=== PATIENT | male | born 1995 | race Caucasian/White ===

== ENCOUNTER 2021-08-12 13:45 | Emergency (ER) | payer OTHER ==
[2021-08-12 16:05] LABS: BILIRUBIN,URINE NEGATIVE (NEGATIVE); GLUCOSE, URINE (UA) NEGATIVE (NEGATIVE); KETONES,URINE (UA) NEGATIVE (NEGATIVE); LEUKOCYTE ESTERASE, URINE NEGATIVE (NEGATIVE); NITRITE,URINE NEGATIVE (NEGATIVE); OCCULT BLOOD,URINE NEGATIVE (NEGATIVE); PROTEIN,URINE NEGATIVE (NEGATIVE); UROBILINOGEN,URINE 0.2 (NORMAL) E.U./dL (NORMAL)
[2021-08-12 16:07] LABS: CLARITY,URINE CLEAR (CLEAR)
--- NOTE | 2021-08-12 16:19 | Ultrasound Report ---
PROCEDURE: Testicle w/Doppler INDICATIONS: testicular pain TECHNIQUE: Real-time scanning was performed of the scrotum and testicles, with image documentation. Color and p ulse Doppler interrogation was performed of both testicles. COMPARISON: None. FINDINGS: Right: Testicle is normal in size at 5.1 x 2.2 x 3.3 cm, and homogenous in echotexture. Epididymis is normal in overall size and morphology. Trace right-sided hydrocele. No varicoceles. Overlying sc rotal skin is normal in thickness. Left: Testicle is normal in size at 4.7 x 2.2 x 3.2 cm, and homogeneous in echotexture. Epididymis is normal in overall size and morphology. 3 mm left epididymal cyst. Small left varicocele. Trace lef t-sided hydrocele. Overlying scrotal skin is normal in thickness. Doppler: Color and pulse Doppler demonstrate normal and symmetric arterial flow in both testicles. IMPRESSION: 1. No evidence of testicular torsion. Please note ultrasound cannot exclude intermittent testicular t orsion. 2. Small left scrotal varicocele. 3. Trace bilateral scrotal hydroceles. 4. 3 mm left epididymal cyst. Reviewed by: Sharon Craven MD, PhD on 08/12/2021 4:18 PM PST Approved by: Sharon Craven MD, PhD on 08/12/2021 4:18 PM PST Station ID: [id number]
--- NOTE | 2021-08-12 16:43 | ED Physician Documentation ---
History of Present Illness - Stated complaint Stated Complaint: TESTICULAR PX - Chief complaint Chief Complaint: General - History obtained from History obtained from: Patient - Additonal information Additional information: Pt comes to the ED c/o L testicular pain since yesterday. Pt states he has a h/o varicocele. No fevers or chills. No dysuria. No drainage. No trauma. No swelling or mass. No sexual partners with STD sx. Review of Systems Ten Systems: 10 systems reviewed and negative Constitutional: reports: Reviewed and negative Eyes: reports: Reviewed and negative Ears: reports: Reviewed and negative Nose: reports: Reviewed and negative Throat: reports: Reviewed and negative Cardiac: reports: Reviewed and negative Respiratory: reports: Reviewed and negative GI: reports: Reviewed and negative : reports: Testicular pain Skin: reports: Reviewed and negative Musculoskeletal: reports: Reviewed and negative Neurologic: reports: Reviewed and negative Psychiatric: reports: Reviewed and negative Endocrine: reports: Reviewed and negative Immunocompromised: reports: Reviewed and negative PD PAST MEDICAL HISTORY - Present Medications Home Medications: Ambulatory Orders Medication Instructions Recorded Confirmed Azithromycin [Zithromax] 0 mg PO DAILY #6 tablet 08/12/21 Ibuprofen [Motrin] 800 mg PO Q8H PRN #30 tablet 08/12/21 predniSONE [Deltasone] 60 mg PO DAILY 3 Days #9 tablet 08/12/21 - Allergies Allergies/Adverse Reactions: Allergies Allergy/AdvReac Type Severity Reaction Status Date / Time No Known Drug Allergies Allergy Verified 08/12/21 14:08 PD ED PE NORMAL - Vitals Vital signs reviewed: Yes - General General: Alert and oriented X 3, No acute distress - HEENT HEENT: PERRL - Cardiac Cardiac: RRR, No murmur - Respiratory Respiratory: Clear bilaterally - Abdomen Abdomen: Normal bowel sounds, Soft, Non tender, Non distended - Male Male : Other (L testicle tender. No enlargement or mass. No edema, erythema or induration of scrotum.) - Derm Derm: Normal color, Warm and dry, No rash - Extremities Extremities: No deformity - Neuro Neuro: Alert and oriented X 3 - Psych Psych: Normal mood, Normal affect Results - Vitals Vitals: Oxygen O2 Source Room air - Labs Labs: Laboratory Tests 08/12/21 14:40 Urine Color YELLOW Urine Clarity CLEAR Urine pH 8.0 H Ur Specific [place] 1.015 Urine Protein NEGATIVE Urine Glucose (UA) NEGATIVE Urine Ketones NEGATIVE Urine Occult Blood NEGATIVE Urine Nitrite NEGATIVE Urine Bilirubin NEGATIVE Urine Urobilinogen 0.2 (NORMAL) Ur Leukocyte Esterase NEGATIVE Ur Microscopic Review NOT INDICATED Urine Culture Comments NOT INDICATED - Rads (name of study) testicular US Radiology: Final report received, EMP read indepedently, See rad report (L testicular varicocele) PD MEDICAL DECISION MAKING - ED course Complexity details: reviewed results, re-evaluated patient, considered differential, d/w patient ED course: Pt was worked up with UA, which was negative, and testicular US, which originally was preliminarily reported as L varicocele and enlargement of epididymal tail. As such, pt was given Zithromax for possible epididymitis, though later, final report came through as epididymal cyst and varicocele. I did discuss symptomatic management with the pt. We have discussed the usual indications for return. Departure - Departure Disposition: 01 Home, Self Care Clinical Impression: Varicocele, Epididymitis Condition: Stable Instructions: ED Epididymitis, ED Varicocele Prescriptions: predniSONE [Deltasone] 60 mg PO DAILY 3 Days #9 tablet Ibuprofen [Motrin] 800 mg PO Q8H PRN #30 tablet PRN Reason: PAIN &/OR FEVER Azithromycin [Zithromax] 0 mg PO DAILY #6 tablet Discharge Date/Time: 08/12/21 17:02
[2021-08-12 17:03] VITALS: BP 139/84
== END 2021-08-12 17:02 | disposition home or self-care (01) ==
LOC: ED 13:45
DX: I86.1 Scrotal varices (principal); N50.89 Other specified disorders of the male genital organs
CPT/HCPCS: 81001; 81003; 87086; 93975; 99283; 99284

== ENCOUNTER 2021-11-25 12:22 | Outpatient (CLI) | payer OTHER ==
--- NOTE | 2021-11-25 16:17 | MRI Report ---
PROCEDURE: Shoulder RT W/O INDICATIONS: PAIN IN RIGHT SHOULDER TECHNIQUE: Noncontrast oblique coronal T2 fast spin echo with fat saturation, oblique sagittal T1 spin echo and T2 fast spin echo with fat saturation, axial T1 spin echo and T2 fast spin echo with fat saturation t hrough the shoulder. COMPARISON: None. FINDINGS: Image quality: Excellent. Rotator cuff: Tendinosis and low-grade articular and bursal surface partial-thickness tear involving distal supraspinatus is seen at its insertion on humeral head extending to muscular tendinous junctio n. Distal infraspinatus tendon is intact. Distal subscapularis tendinosis is seen. No full-thickness rotator cuff tendon rupture. No rotator cuff muscle atrophy on sagittal images. Bones and bursae: No bone marrow contusions or fractures. No acromioclavicular joint degeneration. The acromion demonstrates conventional anatomy, without an os acromiale. No pathologic subacromial/ subdeltoid bursal fluid is present. Capsule and soft tissues: Signal abnormality and contour irregularity involving superior anterior lab rum at 12 to 1:00 position is seen with adjacent small perilabral cyst measures 8 mm in size. Finding is consistent with superior anterior labral tear. The long head of the biceps tendon demonstrates no rmal location and morphology. The rotator interval appears normal, without fibrosis. The coracohume ral ligament is normal in thickness. IMPRESSION: 1. Tendinosis and low-grade articular and bursal surface partial-thickness tear involving distal supr aspinatus extending to muscular tendinous junction. Distal infraspinatus tendinosis. No full-thicknes s rotator cuff tendon rupture. 2. No marrow edema. No fracture or dislocation. No significant joint effusion or subacromial subdelto id bursal fluid. 3. Suggestion of focal superior anterior labral tear at 12 to 1:00 position with adjacent 8mm perilab ral cyst. Reviewed by: Francisco Guillen MD on 11/25/2021 4:16 PM PDT Approved by: Francisco Guillen MD on 11/25/2021 4:16 PM PDT Station ID: [id number]
== END 2021-11-25 12:23 | disposition home or self-care (01) ==
LOC: DI 12:22
DX: M75.111 Incomplete rotator cuff tear or rupture of right shoulder, not specified as traumatic (principal); R93.6 Abnormal findings on diagnostic imaging of limbs; R93.89 Abnormal findings on diagnostic imaging of other specified body structures

== ENCOUNTER 2021-12-14 14:30 | Outpatient (CLI) | payer OTHER ==
--- NOTE | 2021-12-14 17:38 | XRAY Report ---
PROCEDURE: Shoulder 3 View RT INDICATIONS: RIGHT SHOULDER PAIN TECHNIQUE: Views of the location were acquired. COMPARISON: None. FINDINGS: Bones: No fractures or dislocations. No suspicious bony lesions. Soft tissues: No suspicious soft tissue calcifications. IMPRESSION: Normal right shoulder Reviewed by: Emeka Walker on 12/14/2021 5:37 PM PDT Approved by: Emeka Walker on 12/14/2021 5:37 PM PDT Station ID: [id number]
== END 2021-12-14 23:59 | disposition home or self-care (01) ==
LOC: DI.WOS 14:30
PROVIDERS: ATTEND Orthopaedic Surgery
DX: M25.511 Pain in right shoulder (principal)